=== PATIENT | female | born 1960 | race Caucasian/White ===

== ENCOUNTER 2017-10-23 10:52 | Emergency (ER) | payer BC ==
[2017-10-23 12:29] LABS: #Basophils 0.1 thou/uL (0.0-0.2); #Eosinphils 0.1 thou/uL (0.0-0.7); #Lymphocytes 1.2 thou/uL (1.20-3.40); #Monocytes 0.5 thou/uL (0.11-0.59); #Neutrophils 8.5 thou/uL (1.40-6.50); %Basophils 0.5 % (0.0-1.0); %Eosinophils 0.7 % (0.0-10.0); %Monocytes 4.7 % (0.0-10.0); Hemoglobin 14.6 g/dL (12.0-16.0); Mean Corpuscular HGB CONC 31.9 g/dL (32.0-36.0); Mean Corpuscular Hemoglobin 30.4 pg (27.0-31.0); Mean Corpuscular Volume 95.6 fl (81.0-99.0); Platelet Count 296 thou/uL (130-400); Red Blood Cell (RBC) Count 4.79 mill/uL (4.20-5.40); White Blood Cell (WBC) Count 10.3 thou/uL (4.8-10.8)
[2017-10-23 12:36] LABS: INR-International Normal Ratio 1.8; PTT 31.4 SEC (22.9-36.1); Prothrombin Time 21.3 SEC (12.0-14.7)
[2017-10-23 12:43] LABS: ALT (SGPT) 9 U/L (8-55); AST (SGOT) 13 U/L (5-34); Albumin 4.1 g/dL (3.5-5.0); Alkaline Phosphatase 94 U/L (40-150); Anion Gap 12 mmol/L (10-20); BUN (Urea Nitrogen) 9 mg/dL (9.8-20.1); Bilirubin, Total 0.4 mg/dL (0.2-1.2); Calc. Creatinine Clearance 0 mL/min (70-130); Calcium 9.5 mg/dL (7.8-10.44); Carbon Dioxide 26 mmol/L (22-29); Chloride 105 mmol/L (98-107); Estimated GFR-MDRD Greater than 90; Globulin 3.5 g/dL (2.4-3.5); Glucose 115 mg/dL (70-105); Potassium 3.7 mmol/L (3.5-5.1); Protein, Total 7.6 g/dL (6.0-8.3); Sodium 139 mmol/L (136-145)
[2017-10-23 14:23] LABS: Free T4 (Free Thyroxine) 1.08 ng/dL (0.70-1.48)
== END 2017-10-23 16:10 | disposition home or self-care (01) ==
LOC: ERS 10:52
DX: R53.1 Weakness (principal); E03.9 Hypothyroidism, unspecified; F32.9 Major depressive disorder, single episode, unspecified; Z87.891 Personal history of nicotine dependence; Z79.899 Other long term (current) drug therapy; Z79.01 Long term (current) use of anticoagulants
CPT/HCPCS: 80053; 84439; 84443; 84481; 85025; 85610; 85730; 99285

== ENCOUNTER 2018-02-10 04:31 | Emergency (ER) | payer BC ==
--- NOTE | 2018-02-10 08:30 | RAD ---
ABDOMEN 1 VIEW: Date: 02/10/18 HISTORY: PEG tube placement. COMPARISON: 01/21/18. FINDINGS: A PEG tube is in place with contrast injected through the tube and is seen within the stomach and pro ximal small bowel. IMPRESSION: Contrast injected through the tube and is seen within the stomach and proximal small bowel, in good p osition. POS: [facility]
[2018-02-10] MEDS ORDERED: GASTROGRAFIN 30 ML BOT ONE (09:56)
== END 2018-02-10 09:15 | disposition home or self-care (01) ==
LOC: ERS 04:31
DX: Z43.1 Encounter for attention to gastrostomy (principal); F32.9 Major depressive disorder, single episode, unspecified; Z87.891 Personal history of nicotine dependence; Z79.899 Other long term (current) drug therapy; Z79.01 Long term (current) use of anticoagulants; E03.9 Hypothyroidism, unspecified; Z86.711 Personal history of pulmonary embolism
CPT/HCPCS: 43752; 74018